=== PATIENT | female | born 1990 | race Caucasian/White ===

== ENCOUNTER 2017-12-07 13:04 | Emergency (ER) | payer OTHER ==
[~2017-12-07] VITALS: Ht 157.5 cm; Wt 54.5 kg
[2017-12-07] MEDS ORDERED: ACETAMINOPHEN 160 MG/5 ML SUSPENSION UDCUP PO ONE (14:15)
[2017-12-07 14:44] VITALS: BP 104/64
== END 2017-12-07 15:00 | disposition home or self-care (01) ==
LOC: EMS 13:06
DX: R22.0 Localized swelling, mass and lump, head (principal); R51 Headache; F17.210 Nicotine dependence, cigarettes, uncomplicated
CPT/HCPCS: 99283; 99406